=== PATIENT | male | born 1945 | race Caucasian/White ===

== ENCOUNTER 2020-08-04 14:00 | Outpatient (REF) | payer BC, SELFPAY ==
--- NOTE | 2020-08-04 14:02 | XR_ITS ---
EXAMINATION: XR ANKLE, RIGHT CLINICAL INFORMATION: Follow-up fracture COMPARISON: Previous x-rays most recent 06/23/2020 TECHNIQUE: AP, lateral, and mortise views of the right ankle. FINDINGS: There is a fracture of the distal fibular shaft. There is a 4 to 5 mm lateral displacement of the distal fibula with respect to the more proximal shaft. Alignment appears unchanged. Fracture line is still seen and there is minimal periosteal reaction. There is new cortical thickening or periosteal reaction adjacent to the posterior malleolus seen on the lateral view questionable for evidence of trauma. The ankle mortise is normal. There is a small ankle joint effusion. There are large calcaneal spurs. XR/XR ankle RT min 3V IMPRESSION: No appreciable change in minimally displaced distal fibular shaft fracture. New periosteal reaction or cortical thickening of the posterior malleolus questionable for evidence of trauma.
== END 2020-08-04 14:01 | disposition home or self-care (01) ==
LOC: HO.HOSX 14:00
PROVIDERS: Visit Provider Physician Assistant
DX: S82.839D Other fracture of upper and lower end of unspecified fibula, subsequent encounter for closed fracture with routine healing (principal)
CPT/HCPCS: 73610

== ENCOUNTER → 2020-09-17 08:53 | Outpatient (BNV) | payer BC, SELFPAY | PROVIDERS: PCP Nurse Practitioner Family; Visit Provider Internal Medicine Medical Oncology | DX: D47.2 Monoclonal gammopathy (principal) | CPT/HCPCS: 99213; 99214 ==

== ENCOUNTER 2021-02-03 07:00 | Outpatient (RCR) | payer BC, SELFPAY ==
--- NOTE | 2020-12-23 14:56 | MHC.PT.EP ---
[facility] [place] [facility] [place] [facility] [place] [facility] [address] [phone] F: [phone] F: [phone] F: [phone] F: [phone] Physical Therapy Plan of Care Date of Evaluation: 12/23/20 Date of Surgery: n/a Diagnosis: R shoulder pain Assessment: Patient is a 75 year old R handed male who presents with s/s consistent with R shoulder pain. He is retired but enjoys staying busy with work around house and computer work. Patient past medical history is non-contributory. CHICHI may be related to starting up a lawnmower over the summer/fall. Current impairments include pain, ROM, strength, activity tolerance and functional mobility. Functional limitations include decreased ability to reach across body, shave, wash hair, brush teeth, and perform weight bearing activities.. Patient is motivated with good rehab potential. Skilled PT will address impairments and functional limitations in order to achieve goals. Frequency and Duration: The patient will be seen 2x/week for 5 weeks Short Term Goals: I with HEP - 2 weeks AROM WNL ER - 3 weeks Able to brush teeth and shave pain free - 3 weeks Surgical Orderly Goals: Pain free with all ADLs - 5 weeks SPADI 10/130 or better - 5 weeks Treatment Plan: Modalities to reduce pain, spasms and effusion. Manual therapy to restore motion and function. Therapeutic exercise to improve strength and flexibility. Neuromuscular re-education for posture and balance. Therapeutic activities to return to functional activities of daily living. Electronically signed by: Everett Madrigal, PT Please sign and return to therapist. Thank you for your referral.
--- NOTE | 2021-02-03 07:55 | MHC.PT.DC ---
[facility] [place] [facility] [place] Office [place] Office [address] [phone] F: [phone] F: [phone] F: [phone] F: [phone] Physical Therapy Discharge Report Diagnosis: R shoulder pain Date of Surgery: n/a Date of Evaluation: 12/23/20 Date of Discharge: 02/03/21 Treatments to Date: 8 Cancellations to Date: 0 No Shows to Date: 0 Discharge Status: Improved Function Independent with HEP Discharge Summary: Pt has had some progress on ROM and discomfort. Still with some discomfort and tingling in shoulder with supine to sit. We reviewed his HEP and he is appropriate to d/c to HEP at this time. His ER is symmetrical and WNL. He is able to brush teeth and shave pain free. SPADI 18/130. Electronically signed by: Everett Madrigal PT Please sign and return to therapist. Thank you for your referral.
== END 2021-02-03 07:56 | disposition home or self-care (01) ==
LOC: HO.PTCHIC 07:00
PROVIDERS: PCP Nurse Practitioner Family; Visit Provider Nurse Practitioner Family
DX: M25.511 Pain in right shoulder (principal)
CPT/HCPCS: 97110; 97140; 97161

== ENCOUNTER 2021-07-15 07:33 | Outpatient (REF) | payer BC, SELFPAY ==
[2021-07-15 11:26] LABS: MANUAL DIFF FLAG NO
[2021-07-15 11:35] LABS: Basophils Percent Auto 0.5 % (0-2); Eosinophils Absolute Auto 0.2 X10*3/uL (0.0-0.4); Eosinophils Percent Auto 3.2 % (0-4); Hematocrit 38.5 % (42-52); Hemoglobin 12.9 g/dl (14.0-18.0); Imm Gran Abs Auto 0.11 X10*3/uL (0.00-0.03); Imm Gran Pct Auto 1.5 % (0.0-0.4); Lymphocytes Absolute Auto 1.5 X10*3/uL (1.2-4.9); Lymphocytes Percent Auto 20.2 % (20-40); Mean Corpuscular HGB Conc 33.5 g/dl (31.0-36.0); Mean Corpuscular Volume 95.5 fL (80-98); Mean Platelet Volume 10.2 fL (9.4-12.4); Monocytes Absolute Auto 0.5 X10*3/uL (0.1-1.2); Monocytes Percent Auto 7.1 % (2-11); Neutrophils Absolute Auto 5.1 X10*3/uL (2.0-8.3); Neutrophils Percent Auto 67.5 % (45-73); Platelet Count 251 X10*3/uL (160-400); Red Blood Count 4.03 X10*6/uL (4.60-5.80); Red Cell Distribution Width 12.6 % (11.0-16.0); White Blood Count 7.6 X10*3/uL (4.8-10.8)
[2021-07-15 11:57] LABS: Alanine Aminotransferase 43 U/L (0-40); Albumin Level 3.8 g/dL (3.5-5.0); Alkaline Phosphatase 58 U/L (39-117); Anion Gap 10 (12-20); Aspartate Amino Transferase 41 U/L (5-37); Bilirubin Total 0.7 mg/dL (0.0-1.0); Blood Urea Nitrogen 14 mg/dL (9-16); Calcium 9.2 mg/dL (8.4-10.2); Carbon Dioxide 28 mmol/L (22-29); Chloride 101 mmol/L (96-108); Cholesterol 117 mg/dL; Estimated Glomerular Filt Rate > 60; Glucose Fasting 97 mg/dL (60-99); HDL Cholesterol 27 mg/dL; LDL Cholesterol Calculated 69 mg/dl; Potassium 4.4 mmol/L (3.3-5.1); Sodium 135 mmol/L (135-145); Total Protein 7.2 g/dL (6.5-8.0); Triglycerides 106 mg/dL
[2021-07-15 12:20] LABS: TSH reflex Free T4 1.74 uIU/mL (0.32-4.0)
== END 2021-07-15 07:34 | disposition home or self-care (01) ==
LOC: HO.HMGCLDS 07:33
PROVIDERS: PCP Nurse Practitioner Family; Visit Provider Nurse Practitioner Family
DX: I10 Essential (primary) hypertension (principal)
CPT/HCPCS: 36415; 80053; 80061; 84443; 85025

== ENCOUNTER 2022-07-28 07:22 | Outpatient (REF) | payer BC, SELFPAY ==
[2022-07-28 11:20] LABS: MANUAL DIFF FLAG NO
[2022-07-28 11:34] LABS: Appearance Urine Clear; Color Urine Yellow; Glucose Urine UA Negative (Negative); Leukocyte Esterase Urine Negative (Negative); Nitrite Urine Negative (Negative); Urine Blood Negative (Negative); Urine Ketones Negative (Negative); Urine Protein Negative (Neg-Trace)
[2022-07-28 11:45] LABS: Basophils Absolute Auto 0.1 X10*3/uL (0.0-0.2); Basophils Percent Auto 0.8 % (0-2); Eosinophils Absolute Auto 0.2 X10*3/uL (0.0-0.4); Eosinophils Percent Auto 3.4 % (0-4); Hematocrit 39.5 % (42.0-52.0); Hemoglobin 13.3 g/dl (14.0-18.0); Imm Gran Abs Auto 0.02 X10*3/uL (0.00-0.03); Imm Gran Pct Auto 0.3 % (0.0-0.4); Lymphocytes Absolute Auto 1.3 X10*3/uL (1.2-4.9); Lymphocytes Percent Auto 22.5 % (20-40); Mean Corpuscular HGB Conc 33.7 g/dl (31.0-36.0); Mean Corpuscular Hemoglobin 32.4 pg (27.0-33.0); Mean Corpuscular Volume 96.1 fL (80.0-98.0); Mean Platelet Volume 10.3 fL (9.4-12.4); Monocytes Absolute Auto 0.6 X10*3/uL (0.1-1.2); Monocytes Percent Auto 9.8 % (2-11); Neutrophils Absolute Auto 3.7 x10*3/uL (2.0-8.3); Neutrophils Percent Auto 63.2 % (45-73); Platelet Count 193 X10*3/uL (160-400); Red Blood Count 4.11 X10*6/uL (4.60-5.80); Red Cell Distribution Width 12.5 % (11.0-16.0); White Blood Count 5.9 X10*3/uL (4.8-10.8)
[2022-07-28 12:08] LABS: Alanine Aminotransferase 13 U/L (0-40); Albumin Level 4.2 g/dL (3.5-5.0); Alkaline Phosphatase 52 U/L (39-117); Anion Gap 13 (12-20); Aspartate Amino Transferase 15 U/L (5-37); Bilirubin Total 0.9 mg/dL (0.0-1.0); Blood Urea Nitrogen 20 mg/dL (9-16); Calcium 8.9 mg/dL (8.4-10.2); Carbon Dioxide 26 mmol/L (22-29); Chloride 102 mmol/L (96-108); Cholesterol 124 mg/dL; Estimated Glomerular Filt Rate > 60; Glucose Fasting 90 mg/dL (60-99); HDL Cholesterol 37 mg/dL; LDL Cholesterol Calculated 72 mg/dl; Potassium 4.4 mmol/L (3.3-5.1); Sodium 137 mmol/L (135-145); Total Protein 7.4 g/dL (6.5-8.0); Triglycerides 75 mg/dL
[2022-07-28 12:15] LABS: TSH reflex Free T4 1.41 uIU/mL (0.32-4.0)
== END 2022-07-28 07:23 | disposition home or self-care (01) ==
LOC: HO.HMGCLDS 07:22
PROVIDERS: PCP Nurse Practitioner Family; Visit Provider Nurse Practitioner Family
DX: Z00.00 Encounter for general adult medical examination without abnormal findings (principal)
CPT/HCPCS: 36415; 80053; 80061; 81003; 84443; 85025

== ENCOUNTER 2023-02-19 06:50 | Outpatient (REF) | payer BC, SELFPAY ==
[2023-02-19 11:20] LABS: MANUAL DIFF FLAG NO
[2023-02-19 11:26] LABS: Appearance Urine Clear; Color Urine Yellow; Glucose Urine UA Negative (Negative); Leukocyte Esterase Urine Negative (Negative); Nitrite Urine Negative (Negative); Specific Gravity - Urine 1.015 (1.005-1.025); Urine Blood Negative (Negative); Urine Ketones Negative (Negative); Urine Protein Negative (Neg-Trace)
[2023-02-19 11:39] LABS: Basophils Percent Auto 0.7 % (0-2); Eosinophils Absolute Auto 0.2 X10*3/uL (0.0-0.4); Eosinophils Percent Auto 2.8 % (0-4); Hemoglobin 13.1 g/dl (14.0-18.0); Imm Gran Abs Auto 0.01 X10*3/uL (0.00-0.03); Imm Gran Pct Auto 0.2 % (0.0-0.4); Lymphocytes Absolute Auto 1.2 X10*3/uL (1.2-4.9); Mean Corpuscular HGB Conc 34.5 g/dl (31.0-36.0); Mean Corpuscular Hemoglobin 33.1 pg (27.0-33.0); Mean Platelet Volume 10.4 fL (9.4-12.4); Monocytes Absolute Auto 0.4 X10*3/uL (0.1-1.2); Monocytes Percent Auto 7.8 % (2-11); Neutrophils Absolute Auto 3.6 x10*3/uL (2.0-8.3); Neutrophils Percent Auto 66.5 % (45-73); Platelet Count 176 X10*3/uL (160-400); Red Blood Count 3.96 X10*6/uL (4.60-5.80); Red Cell Distribution Width 12.3 % (11.0-16.0); White Blood Count 5.4 X10*3/uL (4.8-10.8)
[2023-02-19 12:04] LABS: Alanine Aminotransferase 18 U/L (0-40); Albumin Level 4.1 g/dL (3.5-5.0); Alkaline Phosphatase 57 U/L (39-117); Anion Gap 10 (12-20); Aspartate Amino Transferase 15 U/L (5-37); Bilirubin Total 0.9 mg/dL (0.0-1.0); Blood Urea Nitrogen 19 mg/dL (9-16); Calcium 9.1 mg/dL (8.4-10.2); Carbon Dioxide 28 mmol/L (22-29); Chloride 105 mmol/L (96-108); Cholesterol 122 mg/dL; Estimated Glomerular Filt Rate > 60; Glucose Fasting 93 mg/dL (60-99); HDL Cholesterol 39 mg/dL; LDL Cholesterol Calculated 67 mg/dl; Potassium 4.3 mmol/L (3.3-5.1); Sodium 139 mmol/L (135-145); Total Protein 7.3 g/dL (6.5-8.0); Triglycerides 80 mg/dL
[2023-02-19 12:20] LABS: TSH reflex Free T4 1.54 uIU/mL (0.32-4.0)
[2023-02-20 22:58] LABS: A. Phagocytphilium DNA,RT-PCR NOT DETECTED (NOT DETECTED); Babesia Microti DNA, RT-PCR NOT DETECTED (NOT DETECTED); Borrelia Miyamotoi,DNA RT-PCR NOT DETECTED (NOT DETECTED); E.Chaffeensis DNA RT-PCR NOT DETECTED (NOT DETECTED); Lyme(Borrelia ssp)DNA RT-PCR NOT DETECTED (NOT DETECTED)
== END 2023-02-19 06:51 | disposition home or self-care (01) ==
LOC: HO.HMGCLDS 06:50
PROVIDERS: PCP Nurse Practitioner Family; Visit Provider Nurse Practitioner Family
DX: I10 Essential (primary) hypertension (principal); T14.8XXA Other injury of unspecified body region, initial encounter; W57.XXXA Bitten or stung by nonvenomous insect and other nonvenomous arthropods, initial encounter
CPT/HCPCS: 36415; 80053; 80061; 81003; 84443; 85025; 87798; 87801

== ENCOUNTER 2023-07-26 10:29 | Outpatient (AMB) | payer BC, SELFPAY ==
--- NOTE | 2023-07-26 10:32 | MHC.PC.OV ---
Vital Signs 07/26/23 10:35 Height 5 ft 8 in Weight 174 lb BMI 26.5 BP 110/68 Blood Pressure Location Rt brachial Position Sitting Pulse 73 Pulse Source Pulse Oximeter Pulse Oximetry (%) 98 Oxygen Delivery Method Room Air Intake Visit Reasons: PE Allergies penicillin G Allergy (Unknown, Verified 07/26/23 10:35) hives penicillin V Allergy (Unknown, Verified 07/26/23 10:35) rash Penicillins [PENICILLINS] Allergy (Unknown, Verified 07/26/23 10:35) RASH Tobacco use date assessed: 01/22/23 HPI PE HPI Details Pt is here for a PE. Will order labs. Pt no longer needs colonoscopies. Pt has a hx of BPH, sees a urologist, PSA will nto be ordered today. referral needed yearly. [facility] Medical History Anemia BPH (benign prostatic hyperplasia) Crepitus of cervical spine Elevated PSA HTN (hypertension) Hypothyroid Jaw claudication MGUS (monoclonal gammopathy of unknown significance) Monoclonal gammopathy Nocturia Nontoxic uninodular goiter Osteopenia Tinea corporis Tubular adenoma Surgical History History of colonoscopy History of prostate biopsy Family History Father History of heart attack Mother No problems noted. Maternal Grandmother Diabetes mellitus Maternal Grandfather Diabetes mellitus Brother No problems noted. Sister No problems noted. Paternal Grandfather No problems noted. Paternal Grandmother No problems noted. Maternal Aunt No problems noted. Maternal Uncle No problems noted. Paternal Aunt No problems noted. Paternal Uncle No problems noted. Other No family history of cancer Social History Household Members: Family Housing: House Are you a primary manager progressive care to a significant other at home: No Do you presently have visiting nurse or other home services: No Alcohol intake: former Patient Tobacco Use Status: Never used Tobacco e-Cigarette/Vaping Use: Never Used Second Hand Smoke Exposure: No service: No Current occupational status: retired Cognitive needs: No Hearing needs: No Vision needs: No Questionnaire Thrive Questionnaire Date Thrive assessed: 07/24/22 ABRAHAM-7 AMB Questionnaire ABRAHAM-7 Date ABRAHAM - 7 assessed: 07/24/22 Source: Developed by Drs. Carlos Alberto Velez, Johanna Cifuentes, Yury Bermudez and colleagues, with an educational nilay from [employer]. Review of Systems Const Denies chills and Denies fever(s) Eyes Denies blurry vision ENT Denies vertigo, Denies dizziness and Denies sore throat Card Denies chest pain at rest, Denies chest pain with activity, Denies diaphoresis, Denies dyspnea and Denies dyspnea on exertion Resp Denies cough, Denies dyspnea, Denies dyspnea on exertion and Denies wheezing GI Denies abdominal pain, Denies melena, Denies hematochezia, Denies constipation, Denies diarrhea and Denies loose stools Denies hematuria Musc Denies numbness and Denies tingling Skin/Breast Denies lesions Neuro Denies vertigo, Denies dizziness, Denies numbness and Denies tingling Psych Denies anxiety, Denies depression, Denies homicidal ideation, Denies suicidal ideation and Denies other (substance abuse) Aller/Immun Denies wheezing Physical exam (Primary Care) Vital Signs: Last Vital Signs Pulse 73 07/26/23 10:35 BP 110/68 07/26/23 10:35 Pulse Ox 98 07/26/23 10:35 Oxygen Delivery Method Room Air 07/26/23 10:35 BMI result Body Mass Index 26.5 Tobacco/Smoking Status: Tobacco use Status Tobacco use date assessed 01/22/23 07/26/23 10:34 Patient Tobacco Use Status Never used Tobacco 07/26/23 10:34 e-Cigarette/Vaping Use Never Used 07/26/23 10:34 Thrive Assessment: Date of Thrive Assessment Date Thrive assessed 07/24/22 07/26/23 10:34 Const General: cooperative Nutritional Appearance: well nourished Orientation/consciousness: patient oriented x3 HENMT Head: Yes normal to inspection, Yes normocephalic and Yes atraumatic Ears: TM's normal bilaterally Eyes General: appearance normal, both eyes and all related structures Alignment and Position: alignment normal and position normal Neck Neck: Yes normal visual inspection and Yes no lymphadenopathy Thyroid: Thyroid normal Resp Effort & Inspection: normal respiratory effort Auscultation: clear to auscultation bilaterally Cardio Rate: regular rate Rhythm: regular rhythm Heart sounds: S1 normal heart sound present, S2 normal heart sound present and no murmurs GI Palpation (GI): Soft to palpation and nontender Auscultation: normal bowel sounds Male General Exam: Yes normal external exam Penis: normal penis Scrotum: scrotum normal, testes descended bilaterally and no inguinal hernias Testes: no testicular mass Skin Rashes: no rashes Neuro General: patient oriented x3, moves all extremities, no focal motor deficits and deep tendon reflexes 2+ bilaterally Romberg Test: Negative Psych Appearance: grossly normal Mental Status: mental status grossly normal Speech and movement: Normal speech and movement present Affect: normal affect Attitude: cooperative Thought process: Normal thought process present Thought content: Normal thought content present Insight: Good insight present (Psych) Judgement: Good judgement present (Psych) Assessment and Plan Assessment & Plan (1) BPH (benign prostatic hyperplasia): Code(s): N40.0 - Benign prostatic hyperplasia without lower urinary tract symptoms Plan: Referred to urology (2) Physical exam: Code(s): Z00. - Encounter for general adult medical examination without abnormal findings Plan: Labs ordered Plan The patient agreed to the use of a medical technologist chief for this encounter. Scribed for VALERIANO Bruce by Jennifer Wong medical technologist chief, on 07/26/2023 at 10:55 EST Orders: Orders Comprehensive Stewart. Panel Fast Today Z00.00 - Encounter for general adult medical examination without abnormal findings TSH reflex Free T4 Today Z00.00 - Encounter for general adult medical examination without abnormal findings UA CC w/rflx Micro + Cult Today Z00.00 - Encounter for general adult medical examination without abnormal findings Lipid Panel Today Z00.00 - Encounter for general adult medical examination without abnormal findings Complete Blood Count Auto Diff Today Z00.00 - Encounter for general adult medical examination without abnormal findings AMB EKG-In Office Today Z00.00 - Encounter for general adult medical examination without abnormal findings Referrals Urology Referral N40.0 - Benign prostatic hyperplasia without lower urinary tract symptoms Coding Level of Care Code Est Pt Prev Care >65y(18656) Diagnoses BPH (benign prostatic hyperplasia) N40.0 Physical exam Z00.00
[2023-07-26 10:35] VITALS: BP 110/68; PULSE 73; O2SAT 98; BMI 26.5
== END 2023-07-26 11:18 | disposition home or self-care (01) ==
PROVIDERS: Visit Provider Nurse Practitioner Family
DX: N40.0 Benign prostatic hyperplasia without lower urinary tract symptoms (principal); Z00.00 Encounter for general adult medical examination without abnormal findings
CPT/HCPCS: 99397

== ENCOUNTER 2023-08-24 07:12 | Outpatient (REF) | payer BC, SELFPAY ==
[2023-08-24 11:28] LABS: MANUAL DIFF FLAG NO
[2023-08-24 11:34] LABS: Appearance Urine Clear; Color Urine Yellow; Glucose Urine UA Negative (Negative); Leukocyte Esterase Urine Negative (Negative); Nitrite Urine Negative (Negative); Urine Blood Negative (Negative); Urine Ketones Negative (Negative); Urine Protein Negative (Neg-Trace)
[2023-08-24 11:37] LABS: Basophils Absolute Auto 0.1 X10*3/uL (0.0-0.2); Basophils Percent Auto 0.8 % (0-2); Eosinophils Absolute Auto 0.2 X10*3/uL (0.0-0.4); Eosinophils Percent Auto 2.4 % (0-4); Hemoglobin 12.8 g/dl (14.0-18.0); Imm Gran Abs Auto 0.02 X10*3/uL (0.00-0.03); Imm Gran Pct Auto 0.3 % (0.0-0.4); Lymphocytes Absolute Auto 1.5 X10*3/uL (1.2-4.9); Lymphocytes Percent Auto 24.4 % (20-40); Mean Corpuscular HGB Conc 33.7 g/dl (31.0-36.0); Mean Corpuscular Hemoglobin 32.7 pg (27.0-33.0); Mean Corpuscular Volume 96.9 fL (80.0-98.0); Mean Platelet Volume 10.7 fL (9.4-12.4); Monocytes Absolute Auto 0.6 X10*3/uL (0.1-1.2); Monocytes Percent Auto 8.8 % (2-11); Neutrophils Absolute Auto 3.9 x10*3/uL (2.0-8.3); Neutrophils Percent Auto 63.3 % (45-73); Platelet Count 192 X10*3/uL (160-400); Red Blood Count 3.92 X10*6/uL (4.60-5.80); Red Cell Distribution Width 12.6 % (11.0-16.0); White Blood Count 6.2 X10*3/uL (4.8-10.8)
[2023-08-24 12:15] LABS: Alanine Aminotransferase 18 U/L (0-40); Albumin Level 4.1 g/dL (3.5-5.0); Alkaline Phosphatase 56 U/L (39-117); Anion Gap 10 (12-20); Aspartate Amino Transferase 17 U/L (5-37); Bilirubin Total 0.8 mg/dL (0.0-1.0); Blood Urea Nitrogen 17 mg/dL (9-16); Calcium 9.5 mg/dL (8.4-10.2); Carbon Dioxide 29 mmol/L (22-29); Chloride 104 mmol/L (96-108); Cholesterol 117 mg/dL (<200); Estimated Glomerular Filt Rate > 60; Glucose Fasting 91 mg/dL (60-99); HDL Cholesterol 37 mg/dL (>40); LDL Cholesterol Calculated 66 mg/dL (<100); Potassium 4.1 mmol/L (3.3-5.1); Sodium 139 mmol/L (135-145); TSH reflex Free T4 1.47 uIU/mL (0.32-4.0); Total Protein 7.7 g/dL (6.5-8.0); Triglycerides 74 mg/dL (<150)
== END 2023-08-24 07:13 | disposition home or self-care (01) ==
LOC: HO.HMGCLDS 07:12
PROVIDERS: PCP Nurse Practitioner Family; Visit Provider Nurse Practitioner Family
DX: Z00.00 Encounter for general adult medical examination without abnormal findings (principal); E03.9 Hypothyroidism, unspecified; I10 Essential (primary) hypertension
CPT/HCPCS: 36415; 80053; 80061; 81003; 84443; 85025

== ENCOUNTER 2023-11-13 12:45 | Outpatient (AMB) | payer BC, SELFPAY ==
[2023-11-13 12:55] VITALS: BP 110/72; PULSE 103; TEMP 36.3; O2SAT 99; BMI 25.2
--- NOTE | 2023-11-13 12:55 | AM.OFFWIN_ITS ---
Intake Vital Signs 11/13/23 12:55 Height 5 ft 8 in Weight 166 lb BMI 25.2 BP 110/72 Blood Pressure Location Lt brachial Position Sitting Pulse 103 H Pulse Source Pulse Oximeter Temp 97.4 F Temp Source Temporal Artery Scan Pulse Oximetry (%) 99 Oxygen Delivery Method Room Air Intake Visit Reasons: EST/abd pain (lobby) Intake Note: pt is here today for abd pain started 1 week ago Patient Tobacco Use Status: Never used Tobacco Allergies penicillin G Allergy (Unknown, Verified 11/13/23 13:40) hives penicillin V Allergy (Unknown, Verified 11/13/23 13:40) rash Penicillins [PENICILLINS] Allergy (Unknown, Verified 11/13/23 13:40) RASH Medication List - Last Reconciled 11/13/23 by Jarrod Urrutia MD calcium citrate 200 mg PO DAILY losartan 100 mg PO DAILY multivitamin 1 tab PO DAILY Do you need a note to return to daycare/school/sports/work: No HPI EST/abd pain (lobby) HPI Details 78 yr old male presents to the office fo r a sick visit. Patient is experiencing sx of diarrhea for the past five days. No family member has similiar illness. Initally had vomiting and nausea which has since subsided. No fever or chills. [facility] Medical History Anemia BPH (benign prostatic hyperplasia) Crepitus of cervical spine Elevated PSA HTN (hypertension) Hypothyroid Jaw claudication MGUS (monoclonal gammopathy of unknown significance) Monoclonal gammopathy Nocturia Nontoxic uninodular goiter Osteopenia Tinea corporis Tubular adenoma Surgical History History of colonoscopy History of prostate biopsy Family History Father History of heart attack Mother No problems noted. Maternal Grandmother Diabetes mellitus Maternal Grandfather Diabetes mellitus Brother No problems noted. Sister No problems noted. Paternal Grandfather No problems noted. Paternal Grandmother No problems noted. Maternal Aunt No problems noted. Maternal Uncle No problems noted. Paternal Aunt No problems noted. Paternal Uncle No problems noted. Other No family history of cancer Social History Household Members: Family Housing: House Are you a primary neonatal critical care nurse to a significant other at home: No Do you presently have visiting nurse or other home services: No Alcohol intake: former Patient Tobacco Use Status: Never used Tobacco e-Cigarette/Vaping Use: Never Used Second Hand Smoke Exposure: No service: No Current occupational status: retired Cognitive needs: No Hearing needs: No Vision needs: No Physical Exam Vital Signs: Last Vital Signs Temp 97.4 F 11/13/23 12:55 Pulse 103 H 11/13/23 12:55 BP 110/72 11/13/23 12:55 Pulse Ox 99 11/13/23 12:55 Oxygen Delivery Method Room Air 11/13/23 12:55 BMI result Body Mass Index 25.2 Const General: cooperative and healthy appearing Nutritional Appearance: well nourished Orientation/consciousness: patient oriented x3 Limitations: no limitations HEENT Head: Yes normal to inspection Eyes General: appearance normal, both eyes and all related structures Neck Neck: Yes normal visual inspection Chest Chest palpation & inspection: normal palpation of entire chest wall Resp Effort & Inspection: normal respiratory effort Neuro General: patient oriented x3 Assessment & Plan Assessment & Plan (1) Diarrhea: Code(s): R19.7 - Diarrhea, unspecified Plan: Cipro called in. Will call with results of blood work. Orders: Orders Liver Panel Today R19.7 - Diarrhea, unspecified Thyroid Stimulating Hormone Today R19.7 - Diarrhea, unspecified Basic Metabolic Panel Today R19.7 - Diarrhea, unspecified Complete Blood Count no Diff Today R19.7 - Diarrhea, unspecified Lipid Panel Today R19.7 - Diarrhea, unspecified UA and rflx microscopic Today R19.7 - Diarrhea, unspecified Coding Level of Care Code Est Pt Level 4 (09857) Diagnoses Diarrhea R19.7
== END 2023-11-13 14:35 | disposition home or self-care (01) ==
PROVIDERS: PCP Nurse Practitioner Family; Visit Provider Internal Medicine
DX: R19.7 Diarrhea, unspecified (principal)
CPT/HCPCS: 99214

== ENCOUNTER 2023-11-13 13:38 | Outpatient (REF) | payer BC, SELFPAY ==
[2023-11-13 16:29] LABS: Hematocrit 40.9 % (42.0-52.0); Hemoglobin 13.8 g/dl (14.0-18.0); Mean Corpuscular HGB Conc 33.7 g/dl (31.0-36.0); Mean Corpuscular Hemoglobin 32.9 pg (27.0-33.0); Mean Corpuscular Volume 97.4 fL (80.0-98.0); Mean Platelet Volume 11.3 fL (9.4-12.4); Platelet Count 246 X10*3/uL (160-400); Red Cell Distribution Width 12.8 % (11.0-16.0); White Blood Count 11.2 X10*3/uL (4.8-10.8)
[2023-11-13 16:49] LABS: Alanine Aminotransferase 44 U/L (0-40); Albumin Level 3.5 g/dL (3.5-5.0); Alkaline Phosphatase 51 U/L (39-117); Anion Gap 14 (12-20); Aspartate Amino Transferase 24 U/L (5-37); Bilirubin Direct 0.3 mg/dL (0.0-0.5); Bilirubin Total 0.7 mg/dL (0.0-1.0); Blood Urea Nitrogen 41 mg/dL (9-16); Calcium 9.2 mg/dL (8.4-10.2); Carbon Dioxide 26 mmol/L (22-29); Chloride 105 mmol/L (96-108); Cholesterol 102 mg/dL (<200); Estimated Glomerular Filt Rate 60; Glucose Random 106 mg/dL (60-115); HDL Cholesterol 23 mg/dL (>40); LDL Cholesterol Calculated 58 mg/dL (<100); Potassium 3.5 mmol/L (3.3-5.1); Sodium 141 mmol/L (135-145); Total Protein 7.4 g/dL (6.5-8.0); Triglycerides 109 mg/dL (<150)
[2023-11-13 17:06] LABS: Thyroid Stimulating Hormone 2.42 uIU/mL (0.32-4.0)
== END 2023-11-13 13:39 | disposition home or self-care (01) ==
LOC: HO.HMGCLDS 13:38
PROVIDERS: PCP Nurse Practitioner Family; Visit Provider Internal Medicine
DX: R19.7 Diarrhea, unspecified (principal)
CPT/HCPCS: 36415; 80048; 80061; 80076; 84443; 85027

== ENCOUNTER 2024-08-15 10:32 | Outpatient (AMB) | payer BC, SELFPAY ==
--- NOTE | 2024-08-15 10:41 | A.OFFPC_ITS ---
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 Required: No Allergies penicillin G Allergy (Unknown, Verified 08/15/24 10:44) hives penicillin V Allergy (Unknown, Verified 08/15/24 10:44) rash Penicillins [PENICILLINS] Allergy (Unknown, Verified 08/15/24 10:44) RASH Medication List - Last Reconciled 08/15/24 by Padmini Aguiar NP calcium citrate 200 mg PO DAILY losartan 100 mg PO DAILY multivitamin 1 tab PO DAILY Tobacco use date assessed: 08/15/24 Fall risk assessment: No Falls in past year Last assessed Fall Risk: 08/15/24 Dental Screening Dental Screen Date: 08/15/24 Did you have a dental visit in the last 12 months?: Yes Did you have a dental problem in the last 6 months where you did not have access to dental care?: No Was dental information given to patient?: Patient has dentist HPI HPI Comments History of Present Illness Details 78 y/o male patient who presents for PE. Patient of Rex Thompson. Pmhx significant for BPH, HTN and Hypothyroidism. No concerns today. [facility] Medical History (Updated 08/15/24 @ 11:13 by Padmini Aguiar NP) Encounter for routine adult health examination without abnormal findings Crepitus of cervical spine MGUS (monoclonal gammopathy of unknown significance) Nontoxic uninodular goiter Tinea corporis Anemia Jaw claudication Monoclonal gammopathy Tubular adenoma Elevated PSA Osteopenia Nocturia HTN (hypertension) BPH (benign prostatic hyperplasia) Hypothyroid Surgical History History of prostate biopsy History of colonoscopy Family History Father History of heart attack Mother No problems noted. Maternal Grandmother Diabetes mellitus Maternal Grandfather Diabetes mellitus Brother No problems noted. Sister No problems noted. Paternal Grandfather No problems noted. Paternal Grandmother No problems noted. Maternal Aunt No problems noted. Maternal Uncle No problems noted. Paternal Aunt No problems noted. Paternal Uncle No problems noted. Other No family history of cancer Social History (Reviewed 08/15/24 @ 10:45 by Rocky Mathews [facility]) Household Members: Family Housing: House Are you a primary careers counsellor to a significant other at home: No Do you presently have visiting nurse or other home services: No Alcohol intake: former Patient Tobacco Use Status: Never used Tobacco e-Cigarette/Vaping Use: Never Used Second Hand Smoke Exposure: No service: No Current occupational status: retired Cognitive needs: No Hearing needs: No Vision needs: No Questionnaire PHQ-9 Over the last 2 weeks, how often have you been bothered by any of the following problems? 1. Little interest or pleasure in doing things: not at all 2. Feeling down, depressed, or hopeless: not at all 3. Trouble falling or staying asleep, or sleeping too much: not at all 4. Feeling tired or having little energy: not at all 5. Poor appetite or overeating: not at all 6. Feeling bad about yourself - or that you are a failure or have let yourself or your family down: not at all 7. Trouble concentrating on things, such as reading the newspaper or watching television: not at all 8. Moving or speaking so slowly that other people could have noticed. Or the opposite - being so fidgety or restless that you have been moving around a lot more than usual: not at all 9. Thoughts that you would be better off or of hurting yourself in some way: not at all Total score: 0 Depression Screening Interpretation: Negative Depression Screening Done: Yes 56901 - PHQ-9 Billing: Yes Source: Developed by Drs. Carlos Alberto Velez, Johanna Cifuentes, Yury Bermudez and colleagues, with an educational nilay from [employer].. Thrive Questionnaire Date Thrive assessed: 08/15/24 I am a: Patient What is your living situation today?: I have a steady place to live Within the past 12 months, did the food you bought not last and you didn't have the money to get more?: Never true Within the past 12 months, did you worry whether your food would run out before you got money to buy more?: Never true Do you have trouble paying for medicines?: No Do you have trouble getting transportation to medical appointments?: No Do you have trouble paying your heating and electricity bill?: No Do you have trouble taking care of your child, family member or friend?: No Do you have trouble with day-to-day activities such as bathing, preparing meals, shopping, managing finances, etc.?: No Are you currently unemployed and looking for a job?: No Are you interested in more education?: No Please select the resources that you would like help with: None Currently or been in a relationship where the following occur: No concerns reported THRIVE Score: 0 AUDIT C Alcohol Use Questionnaire (AUDIT-C) 1. How often do you have a drink containing alcohol?: Never 3. How often do you have six or more drinks on one occasion?: Never Total Score: 0 Score Reviewed/Action Taken: Yes ABRAHAM-7 AMB Questionnaire ABRAHAM-7 Date ABRAHAM - 7 assessed: 08/15/24 Feeling nervous, anxious, or on edge: 0 = Not at all Not being able to stop or control worryin = Not at all Worrying too much about different things: 0 = Not at all Trouble relaxin = Not at all Being so restless that it is hard to sit still: 0 = Not at all Becoming easily annoyed or irritable: 0 = Not at all Feeling afraid as if something awful might happen: 0 = Not at all Total ABRAHAM-7 score (0-4 normal; 5-9 mild; 10-14 moderate; 15-21 severe): 0 Source: Developed by Drs. Carlos Alberto Velez, Johanna Cifuentes, Yury Bermudez and colleagues, with an educational nilay from [employer].. ABRAHAM-7 Assessment Billing ABRAHAM-7 Assessment Tool: ABRAHAM-7 Assessment 05099 Review of Systems Const All systems reviewed & are unremarkable except as noted in HPI and below Physical exam (Primary Care) Vital Signs: Last Vital Signs Pulse 80 08/15/24 10:42 BP 116/68 08/15/24 10:42 Pulse Ox 98 08/15/24 10:42 BMI result Body Mass Index 26.1 Tobacco/Smoking Status: Tobacco use Status Tobacco use date assessed 08/15/24 08/15/24 10:46 Patient Tobacco Use Status Never used Tobacco 08/15/24 10:43 e-Cigarette/Vaping Use Never Used 08/15/24 10:43 PHQ-9: PHQ-9 Score PHQ-9: Total score 0 08/15/24 10:46 Depression Screening Interpretation: Negative Thrive Assessment: Date of Thrive Assessment Date Thrive assessed 08/15/24 08/15/24 10:46 Currently or been in a relationship where the following occur: No concerns reported Const General: cooperative, comfortable and no acute distress Nutritional Appearance: well nourished Orientation/consciousness: patient oriented x3 HENMT Head: Yes normocephalic Ears: external ears normal and TM's normal bilaterally General nose exam: Normal external nose present Face and sinus: Yes sinuses nontender Mouth: moist mucous membranes Throat: Yes tonsils normal and Yes uvula midline Eyes Pupils: Equal, round and reactive pupils present EOM: EOMs intact bilaterally Neck Neck: Yes full ROM and Yes no lymphadenopathy Thyroid: Thyroid normal Resp Effort & Inspection: normal respiratory effort and able to speak in complete sentences Auscultation: clear to auscultation bilaterally, no crackles, no rales, no rhonchi and no wheezes Cardio Heart sounds: S1 normal heart sound present and S2 normal heart sound present GI Inspection: Yes normal to inspection Palpation (GI): Soft to palpation, not firm, nontender, no guarding, not rigid and No hepatosplenomegaly present Percussion: Yes normal to percussion Auscultation: normal bowel sounds Rectal Exam - Male: Yes deferred General: Yes no CVA tenderness Back/Spine/Pelvis Back: no CVA tenderness Skin General skin exam: no rashes or lesions noted Neuro General: patient oriented x3, gait normal and moves all extremities Cranial nerves: Yes Equal, round and reactive pupils present Motor exam (neuro): 5/5 motor strength present throughout Extrem General: Yes full ROM and Yes capillary refill normal Psych Speech and movement: Normal speech and movement present Coding Level of Care Code Est Pt Prev Care >65y(03013) Diagnoses Encounter for routine adult health examination without abnormal findings Z00.00 Benign prostatic hyperplasia with urinary hesitancy N40.1; R39.11 Lower urinary tract symptom presence: symptoms present Lower urinary tract symptom detail: urinary hesitancy Primary hypertension I10 Hypertension type: primary hypertension Additional Codes ABRAHAM-7 Assessment Billing - ABRAHAM-7 Assessment Tool: ABRAHAM-7 Assessment 57092 ([id number]) PHQ-9 - 56662 - PHQ-9 Billing: Yes ([id number]) Time Spent (min) 30 Assessment & Plan Assessment & Plan (1) Encounter for routine adult health examination without abnormal findings: Code(s): Z00.00 - Encounter for general adult medical examination without abnormal findings Category: Medical Plan: Exam WNL (2) BPH (benign prostatic hyperplasia): Code(s): N40.0 - Benign prostatic hyperplasia without lower urinary tract symptoms Category: Medical Qualifiers: Lower urinary tract symptom presence: symptoms present Lower urinary tract symptom detail: urinary hesitancy Qualified Code(s): N40.1 - Benign prostatic hyperplasia with lower urinary tract symptoms; R39.11 - Hesitancy of micturition Plan: Managed by Urology (3) HTN (hypertension): Code(s): I10 - Essential (primary) hypertension Category: Medical Qualifiers: Hypertension type: primary hypertension Qualified Code(s): I10 - Essential (primary) hypertension Plan: Continue on Losartan as prescribed. Medications: Refilled losartan 100 mg PO DAILY 90 tabs 1RF Discontinued ciprofloxacin HCl Discontinued Reason: Patient Completed Course 250 mg PO Q12H 14 tabs 0RF
[2024-08-15 10:42] VITALS: BP 116/68; PULSE 80; O2SAT 98; BMI 26.1
== END 2024-08-15 11:16 | disposition home or self-care (01) ==
PROVIDERS: PCP Nurse Practitioner Family; Visit Provider Nurse Practitioner Family
DX: Z00.00 Encounter for general adult medical examination without abnormal findings (principal); N40.1 Benign prostatic hyperplasia with lower urinary tract symptoms; R39.11 Hesitancy of micturition; I10 Essential (primary) hypertension

== ENCOUNTER → 2024-08-15 10:32 | Outpatient (BNVA) | payer BC, SELFPAY | PROVIDERS: PCP Nurse Practitioner Family; Visit Provider Nurse Practitioner Family | DX: Z00.00 Encounter for general adult medical examination without abnormal findings (principal); N40.1 Benign prostatic hyperplasia with lower urinary tract symptoms; R39.11 Hesitancy of micturition; I10 Essential (primary) hypertension; Z79.899 Other long term (current) drug therapy | CPT/HCPCS: 96127 ==

== ENCOUNTER 2025-02-09 10:02 | Outpatient (AMB) | payer BC, SELFPAY ==
[2025-02-09 10:13] VITALS: BP 110/70; PULSE 92; O2SAT 98; BMI 26.0
--- NOTE | 2025-02-09 10:13 | A.OFFPC_ITS ---
Vital Signs 02/09/25 10:13 Height 5 ft 8 in Weight 171 lb BMI 26.0 BP 110/70 Blood Pressure Location Lt brachial Position Sitting Pulse 92 Pulse Source Pulse Oximeter Pulse Oximetry (%) 98 Intake Visit Reasons: 6 month f/u Vp Of Digital Marketing Required: No Accompanied by: Self / Same As Patient Allergies penicillin G Allergy (Unknown, Verified 02/09/25 10:13) hives penicillin V Allergy (Unknown, Verified 02/09/25 10:13) rash Penicillins [PENICILLINS] Allergy (Unknown, Verified 02/09/25 10:13) RASH Medication List - Last Reconciled 02/09/25 by CAMILLE SchwartzP- calcium citrate 200 mg PO DAILY losartan 100 mg PO DAILY multivitamin 1 tab PO DAILY Tobacco use date assessed: 02/09/25 Fall risk assessment: No Falls in past year Last assessed Fall Risk: 02/09/25 Dental Screening Dental Screen Date: 02/09/25 Did you have a dental visit in the last 12 months?: Yes Did you have a dental problem in the last 6 months where you did not have access to dental care?: No Was dental information given to patient?: Patient has dentist HPI 6 month f/u HPI Details Chief Complaint The patient reports the presence of a large mass in the left calf region. History of Present Illness The patient is an 79-year-old male being seen regarding a mass in the left calf. The mass was noted two weeks prior and is located on the lateral aspect of the left calf. It is described as sizable, semi-movable, resembling a lipoma, and lacking tenderness. The patient reports no calf pain, warmth, or tenderness associated with the mass. Circulation, motor, and sensory function in the left calf is reported as normal. Hypertension management is stable, and the patient denies any symptoms including chest pain, shortness of breath, headache, or blurred vision. Social History Health Maintenance Review of Systems - Musculoskeletal: Denies calf pain, war mth, tenderness. - Cardiovascular: Denies chest pain. - Respiratory: Denies shortness of breat h. - Neurological: Denies headache, blurred vision. Physical Exam General: Cooperative, healthy appearing, comfortable, no acute distress and well developed Orientation: Patient oriented x3 Limitations: No limitations Head: Normal to inspection Ears: Hearing grossly normal bilaterally Nose: Normal external nose present Face and sinus: Normal facial exam Eyes: Appearance normal, both eyes and all related structures Neck: Normal visual inspection and Yes full ROM Respiratory: Normal respiratory effort and able to speak in complete sentences. Clear to auscultation bilaterally Cardiovascular: Regular rate and rhythm. Normal S1 and S2 GI: Normal to inspection. Soft to palpation and nontender Skin: No rashes or lesions noted Neuro: Patient oriented x3 Extremities: Normal to inspection, except for a large semi-movable mass on the left calf, lateral aspect, suspected lipoma, non-tender, good CMS to the left. Results Plan An ultrasound of the left calf mass will be ordered to further evaluate its nature, with consideration for the likely diagnosis of a lipoma. A referral to general surgery will be made for potential excision of the lipomatous mass based on imaging findings. The patient's stable essential hypertension will continue to be monitored, and no alterations in management are anticipated at this time. I will await lab results relevant to his oncological and hematological conditions for continued assessment. Discussion Notes I discussed with the patient the likely diagnosis of a lipoma concerning the mass in his left calf, highlighting necessitated imaging via ultrasound to confirm its characteristics. I explained the potential need for surgical excision should the diagnosis be confirmed, detailing the anticipated benefits and the usual low-risk nature of lipoma removal. Considerations surrounding his hypertension management were reviewed. As the patient remains stable with respect to blood pressure, no immediate medication adjustments are warranted. We discussed anticipated lab evaluations by his oncologist and textile colorist formulator concerning his broader health context, which will further inform care strategies moving forward. Patient Instructions - Watch for changes in the size or sensa tion of the calf mass. - Keep all scheduled appointments, inclu ding ultrasound and surgical consultations. - Continue to monitor blood pressure as advised. - Report any new symptoms such as pain, redness, or changes in the mass promptly. 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 Maternal Grandmother Diabetes mellitus Maternal Grandfather Diabetes mellitus Brother No problems noted. Sister No problems noted. Paternal Grandfather No problems noted. Paternal Grandmother No problems noted. Maternal Aunt No problems noted. Maternal Uncle No problems noted. Paternal Aunt No problems noted. Paternal Uncle No problems noted. Other No family history of cancer Social History Household Members: Family Housing: House Are you a primary childcare director to a significant other at home: No Do you presently have visiting nurse or other home services: No Alcohol intake: former Patient Tobacco Use Status: Never used Tobacco e-Cigarette/Vaping Use: Never Used Second Hand Smoke Exposure: No service: No Current occupational status: retired Cognitive needs: No Hearing needs: No Vision needs: No Questionnaire PHQ-9 Over the last 2 weeks, how often have you been bothered by any of the following problems? 1. Little interest or pleasure in doing things: not at all 2. Feeling down, depressed, or hopeless: not at all 3. Trouble falling or staying asleep, or sleeping too much: not at all 4. Feeling tired or having little energy: not at all 5. Poor appetite or overeating: not at all 6. Feeling bad about yourself - or that you are a failure or have let yourself or your family down: not at all 7. Trouble concentrating on things, such as reading the newspaper or watching television: not at all 8. Moving or speaking so slowly that other people could have noticed. Or the opposite - being so fidgety or restless that you have been moving around a lot more than usual: not at all 9. Thoughts that you would be better off or of hurting yourself in some way: not at all Total score: 0 Depression Screening Interpretation: Negative Depression Screening Done: Yes 68169 - PHQ-9 Billing: Yes Source: Developed by Drs. Carlos Alberto Velez, Johanna Cifuentes, Yury Bermudez and colleagues, with an educational nilay from [employer]. Thrive Questionnaire Date Thrive assessed: 02/09/25 I am a: Patient What is your living situation today?: I have a steady place to live Within the past 12 months, did the food you bought not last and you didn't have the money to get more?: Never true Within the past 12 months, did you worry whether your food would run out before you got money to buy more?: Never true Do you have trouble paying for medicines?: No Do you have trouble getting transportation to medical appointments?: No Do you have trouble paying your heating and electricity bill?: No Do you have trouble taking care of your child, family member or friend?: No Do you have trouble with day-to-day activities such as bathing, preparing meals, shopping, managing finances, etc.?: No Are you currently unemployed and looking for a job?: No Are you interested in more education?: No Please select the resources that you would like help with: None Currently or been in a relationship where the following occur: No concerns reported THRIVE Score: 0 AUDIT C Alcohol Use Questionnaire (AUDIT-C) 1. How often do you have a drink containing alcohol?: Never 3. How often do you have six or more drinks on one occasion?: Never Total Score: 0 Score Reviewed/Action Taken: Yes ABRAHAM-7 AMB Questionnaire ABRAHAM-7 Date ABRAHAM - 7 assessed: 02/09/25 Feeling nervous, anxious, or on edge: 0 = Not at all Not being able to stop or control worryin = Not at all Worrying too much about different things: 0 = Not at all Trouble relaxin = Not at all Being so restless that it is hard to sit still: 0 = Not at all Becoming easily annoyed or irritable: 0 = Not at all Feeling afraid as if something awful might happen: 0 = Not at all Total ABRAHAM-7 score (0-4 normal; 5-9 mild; 10-14 moderate; 15-21 severe): 0 Source: Developed by Drs. Carlos Alberto Velez, Johanna Cifuentes, Yury Bermudez and colleagues, with an educational nilay from [employer]. ABRAHAM-7 Assessment Billing ABRAHAM-7 Assessment Tool: ABRAHAM-7 Assessment 90343 Physical exam (Primary Care) Vital Signs: Last Vital Signs Pulse 92 02/09/25 10:13 BP 110/70 02/09/25 10:13 Pulse Ox 98 02/09/25 10:13 BMI result Body Mass Index 26.0 Tobacco/Smoking Status: Tobacco use Status Tobacco use date assessed 02/09/25 02/09/25 10:14 Patient Tobacco Use Status Never used Tobacco 02/09/25 10:14 e-Cigarette/Vaping Use Never Used 02/09/25 10:14 PHQ-9: PHQ-9 Score PHQ-9: Total score 0 02/09/25 10:41 Depression Screening Interpretation: Negative Thrive Assessment: Date of Thrive Assessment Date Thrive assessed 02/09/25 02/09/25 10:14 Currently or been in a relationship where the following occur: No concerns reported Coding Level of Care Code Est Pt Level 4 (90252) Diagnoses Mass of left lower extremity R22.42 Primary hypertension I10 Hypertension type: primary hypertension Additional Codes ABRAHAM-7 Assessment Billing - ABRAHAM-7 Assessment Tool: ABRAHAM-7 Assessment 87202 ([id number]) PHQ-9 - 61388 - PHQ-9 Billing: Yes ([id number]) Assessment & Plan Assessment & Plan (1) Mass of left lower extremity: Code(s): R22.42 - Localized swelling, mass and lump, left lower limb Category: Medical (2) HTN (hypertension): Code(s): I10 - Essential (primary) hypertension Category: Medical Qualifiers: Hypertension type: primary hypertension Qualified Code(s): I10 - Essential (primary) hypertension Plan . Orders: Orders Lipid Panel Today I10 - Essential (primary) hypertension TSH reflex Free T4 Today I10 - Essential (primary) hypertension US Extremity Nonvas Limited LT Today R22.42 - Localized swelling, mass and lump, left lower limb Comprehensive [place]. Panel Fast Today I10 - Essential (primary) hypertension UA CC w/rflx Micro + Cult Today I10 - Essential (primary) hypertension Referrals General Surgery Referral R22.42 - Localized swelling, mass and lump, left lower limb
== END 2025-02-09 11:08 | disposition home or self-care (01) ==
LOC: HO.HMCC 10:02
PROVIDERS: PCP Nurse Practitioner Family; Visit Provider Nurse Practitioner Family
DX: R22.42 Localized swelling, mass and lump, left lower limb (principal); I10 Essential (primary) hypertension

== ENCOUNTER → 2025-02-09 10:02 | Outpatient (BNVA) | payer BC, SELFPAY | PROVIDERS: PCP Nurse Practitioner Family; Visit Provider Nurse Practitioner Family | DX: R22.42 Localized swelling, mass and lump, left lower limb (principal); I10 Essential (primary) hypertension | CPT/HCPCS: 96127 ==

== ENCOUNTER 2025-02-10 06:53 | Outpatient (REF) | payer BC, SELFPAY ==
[2025-02-10 10:12] LABS: Appearance Urine Clear; Color Urine Yellow; Glucose Urine UA Negative (Negative); Leukocyte Esterase Urine Trace (Negative); Nitrite Urine Negative (Negative); PH 7.5 (5.0-9.0); UMIC TRIGGER UACC YES; Urine Blood Negative (Negative); Urine Ketones Negative (Negative); Urine Protein Negative (Neg-Trace)
[2025-02-10 10:18] LABS: Bacteria Urine None Seen (None Seen); Hyaline Casts Urine 0-2 /LPF (0-2); RBC Urine 0-2 /HPF (0-2); Squamous Epithelial Cell Urine 0-2 /HPF (0-2); WBC Urine 0-5 /HPF (0-5)
[2025-02-10 10:33] LABS: MANUAL DIFF FLAG NO
[2025-02-10 10:41] LABS: Basophils Absolute Auto 0.1 X10*3/uL (0.0-0.2); Basophils Percent Auto 0.9 % (0-2); Eosinophils Absolute Auto 0.1 X10*3/uL (0.0-0.4); Eosinophils Percent Auto 2.5 % (0-4); Hematocrit 34.7 % (42.0-52.0); Hemoglobin 11.9 g/dl (14.0-18.0); Imm Gran Abs Auto 0.02 X10*3/uL (0.00-0.03); Imm Gran Pct Auto 0.4 % (0.0-0.4); Lymphocytes Absolute Auto 1.3 X10*3/uL (1.2-4.9); Mean Corpuscular HGB Conc 34.3 g/dl (31.0-36.0); Mean Corpuscular Hemoglobin 33.3 pg (27.0-33.0); Mean Corpuscular Volume 97.2 fL (80.0-98.0); Mean Platelet Volume 10.7 fL (9.4-12.4); Monocytes Absolute Auto 0.4 X10*3/uL (0.1-1.2); Monocytes Percent Auto 7.8 % (2-11); Neutrophils Absolute Auto 3.6 x10*3/uL (2.0-8.3); Neutrophils Percent Auto 65.4 % (45-73); Platelet Count 198 X10*3/uL (160-400); Red Blood Count 3.57 X10*6/uL (4.60-5.80); Red Cell Distribution Width 12.8 % (11.0-16.0); White Blood Count 5.5 X10*3/uL (4.8-10.8)
[2025-02-10 11:25] LABS: Alanine Aminotransferase 12 U/L (0-40); Albumin Level 4.1 g/dL (3.5-5.0); Alkaline Phosphatase 57 U/L (39-117); Anion Gap 10 (12-20); Aspartate Amino Transferase 19 U/L (5-37); Bilirubin Total 0.8 mg/dL (0.0-1.0); Blood Urea Nitrogen 21 mg/dL (9-16); Calcium 9.1 mg/dL (8.4-10.2); Carbon Dioxide 27 mmol/L (22-29); Chloride 104 mmol/L (96-108); Cholesterol 113 mg/dL (<200); Estimated Glomerular Filt Rate > 60; Ferritin 367 ng/mL (20-250); Glucose Fasting 98 mg/dL (60-99); Glucose Random 97 mg/dL (60-115); Potassium 4.2 mmol/L (3.3-5.1); Sodium 137 mmol/L (135-145); Total Protein 7.5 g/dL (6.5-8.0); Triglycerides 72 mg/dL (<150)
[2025-02-10 12:04] LABS: HDL Cholesterol 42 mg/dL (>40); LDL Cholesterol Calculated 57 mg/dL (<100)
[2025-02-12 12:03] LABS: Kappa Light Chain, Free Serum 13.1 mg/L (3.3-19.4); Kappa/Lambda Lt Ch Free Ratio 0.11 (0.26-1.65); Lambda Light Chain, Free Serum 119.1 mg/L (5.7-26.3)
[2025-02-13 09:54] LABS: IgA 49 mg/dL (70-320); IgG 730 mg/dL (600-1540); IgM 2097 mg/dL (50-300)
== END 2025-02-10 06:54 | disposition home or self-care (01) ==
LOC: HO.HMGCLDS 06:53
PROVIDERS: PCP Nurse Practitioner Family; Referring Provider Internal Medicine Medical Oncology; Visit Provider Nurse Practitioner Family
DX: D47.2 Monoclonal gammopathy (principal); I10 Essential (primary) hypertension
CPT/HCPCS: 36415; 80053; 80061; 81001; 81003; 82728; 82784; 83521; 84443; 85025; 86334

== ENCOUNTER 2025-02-11 15:04 | Outpatient (AMB) | payer BC, SELFPAY ==
--- NOTE | 2025-02-11 15:06 | MHC.OFFVIS ---
Vital Signs 02/11/25 15:10 Height 5 ft 8 in Weight 170 lb BMI 25.8 BP 127/63 Blood Pressure Location Rt brachial Position Sitting Pulse 89 Intake Visit Reasons: Lump (L) Lower Limb Intake Note: Patient referred by pcp Rex Thompson PA-C for mass on Lt calf. Present for 2wks. Patient c/o: denies trauma. Feels uncomfortable when walking. No hx of skin CA. Mushroom Picker Required: No Accompanied by: spouse Johanna Allergies penicillin G Allergy (Unknown, Verified 02/11/25 15:13) hives penicillin V Allergy (Unknown, Verified 02/11/25 15:13) rash Penicillins [PENICILLINS] Allergy (Unknown, Verified 02/11/25 15:13) RASH Medication List - Last Reconciled 02/11/25 by Uvaldo Bang MD calcium citrate 200 mg PO DAILY losartan 100 mg PO DAILY multivitamin 1 tab PO DAILY HPI HPI Lump (L) Lower Limb: Details: 79-year-old male referred for a lump on the left leg. He says that he has felt this for maybe about 2 weeks. He denies any trauma to the area. He describes discomfort but not pain. He denies any skin changes. He says he is still able to walk normally. He denies any other complaints. He does mentioned that he had an RSV infection about a month ago and was apparently sick with respiratory symptoms. He also says he is being followed by Dr. Cruz of Oncology for monoclonal gammopathy. 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 Maternal Grandmother Diabetes mellitus Maternal Grandfather Diabetes mellitus Brother No problems noted. Sister No problems noted. Paternal Grandfather No problems noted. Paternal Grandmother No problems noted. Maternal Aunt No problems noted. Maternal Uncle No problems noted. Paternal Aunt No problems noted. Paternal Uncle No problems noted. Other No family history of cancer Social History Household Members: Family Housing: House Are you a primary residential care officer to a significant other at home: No Do you presently have visiting nurse or other home services: No Alcohol intake: former Patient Tobacco Use Status: Never used Tobacco e-Cigarette/Vaping Use: Never Used Second Hand Smoke Exposure: No service: No Current occupational status: retired Cognitive needs: No Hearing needs: No Vision needs: No Review of Systems Const Denies chills and Denies fever(s) Card Denies chest pain, Denies dyspnea and Denies dyspnea on exertion Resp Denies cough, Denies dyspnea and Denies dyspnea on exertion GI Denies hematochezia and Denies change in bowel habits Denies hematuria and Denies difficulty urinating Musc Denies back pain and Denies limited range of motion Neuro Denies focal weakness and Denies convulsions Psych Denies depression and Denies mood swings Physical Exam Vital Signs: Last Vital Signs Pulse 89 02/11/25 15:10 BP 127/63 02/11/25 15:10 BMI result Body Mass Index 25.8 Const General: comfortable and no acute distress Orientation/consciousness: patient oriented x3 Neck Neck: Yes no lymphadenopathy Resp Auscultation: clear to auscultation bilaterally Cardio Rhythm: regular rhythm GI Palpation (GI): Soft to palpation, nontender and no guarding Neuro General: patient oriented x3 Extrem Other: Left lower leg posteriorly is note of what he had to be a firm but well-defined mass about 5 cm in widest dimension without skin changes Assessment & Plan Assessment & Plan (1) Mass of left lower leg: Code(s): R22.42 - Localized swelling, mass and lump, left lower limb Category: Medical Plan: He has this firm well-defined mass on the posterior leg overlying the gastrocnemius as described above. I am uncertain as to the exact pathology. He says he is already scheduled to undergo an ultrasound for this in 3 weeks. This will provide us more information. I will see him again in the office after his ultrasound. Coding Level of Care Code New Pt Level 3 (72236) Diagnoses Mass of left lower leg R22.42
[2025-02-11 15:10] VITALS: BP 127/63; PULSE 89; BMI 25.8
== END 2025-02-11 15:27 | disposition home or self-care (01) ==
LOC: HO.HGS 15:05
PROVIDERS: PCP Nurse Practitioner Family; Visit Provider Surgery
DX: R22.42 Localized swelling, mass and lump, left lower limb (principal)
CPT/HCPCS: 99203

== ENCOUNTER → 2025-02-11 15:04 | Outpatient (BNVA) | payer BC, SELFPAY | PROVIDERS: PCP Nurse Practitioner Family; Visit Provider Surgery ==

== ENCOUNTER 2025-03-03 14:20 | Outpatient (REF) | payer BC, SELFPAY ==
--- NOTE | ~2025-03-03 | US_ITS ---
EXAMINATION: Ultrasound venous duplex bilateral lower extremities. CLINICAL INDICATION: Bilateral leg Edema. COMPARISON: None. TECHNIQUE: Routine grayscale, color and Doppler imaging of bilateral lower extremity veins were performed. FINDINGS: There is normal color flow, compression and augmentation seen in bilateral common femoral, greater saphenous, central femoral, popliteal, posterior tibial, peroneal veins. The soft tissues are normal. US/US Extremity Nonvas Limited LT IMPRESSION: Normal bilateral lower extremity venous study. Electronically signed by: Marvin Owen MD 03/04/2025 09:09 AM EDT
== END 2025-03-03 14:21 | disposition home or self-care (01) ==
LOC: HO.HMGCX 14:20
PROVIDERS: PCP Nurse Practitioner Family; Visit Provider Nurse Practitioner Family
DX: R22.42 Localized swelling, mass and lump, left lower limb (principal)
CPT/HCPCS: 76882

== ENCOUNTER → 2025-03-03 14:22 | Outpatient (BNV) | payer BC, SELFPAY | PROVIDERS: PCP Nurse Practitioner Family; Visit Provider Radiology Diagnostic Radiology | DX: R22.43 Localized swelling, mass and lump, lower limb, bilateral (principal) | CPT/HCPCS: 76882 ==

== ENCOUNTER 2025-03-12 13:01 | Outpatient (AMB) | payer BC, SELFPAY ==
--- NOTE | 2025-03-12 13:07 | A.OFFVIS_ITS ---
Vital Signs 03/12/25 13:11 Height 5 ft 8 in Weight 175 lb BMI 26.6 BP 129/67 Blood Pressure Location Rt brachial Position Sitting Pulse 88 Intake Visit Reasons: s/p US Lump (L) Lower Limb Intake Note: Patient here s/p LLE us from 03-03-2025. Reports lump on Lt calf still present. Patient c/o: denies pain, tenderness. Veterinary Surgery Technologist Required: No Accompanied by: spouse Rula Allergies penicillin G Allergy (Unknown, Verified 03/12/25 13:08) hives penicillin V Allergy (Unknown, Verified 03/12/25 13:08) rash Penicillins [PENICILLINS] Allergy (Unknown, Verified 03/12/25 13:08) RASH Medication List - Last Reconciled 03/12/25 by Uvaldo Bang MD calcium citrate 200 mg PO DAILY losartan 100 mg PO DAILY multivitamin 1 tab PO DAILY HPI HPI s/p US Lump (L) Lower Limb: Details: I had seen him in the office because of a left calf mass a month ago. I had sent him for an ultrasound to define this He says that this does not cause any pain. He says that the mass has shrunk in size. He denies any skin changes. 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 Maternal Grandmother Diabetes mellitus Maternal Grandfather Diabetes mellitus Brother No problems noted. Sister No problems noted. Paternal Grandfather No problems noted. Paternal Grandmother No problems noted. Maternal Aunt No problems noted. Maternal Uncle No problems noted. Paternal Aunt No problems noted. Paternal Uncle No problems noted. Other No family history of cancer Social History Household Members: Family Housing: House Are you a primary cna caregiver to a significant other at home: No Do you presently have visiting nurse or other home services: No Alcohol intake: former Patient Tobacco Use Status: Never used Tobacco e-Cigarette/Vaping Use: Never Used Second Hand Smoke Exposure: No service: No Current occupational status: retired Cognitive needs: No Hearing needs: No Vision needs: No Review of Systems Const Denies chills and Denies fever(s) Card Denies chest pain at rest GI Denies abdominal pain Denies difficulty urinating Physical Exam Vital Signs: Last Vital Signs Pulse 88 03/12/25 13:11 BP 129/67 03/12/25 13:11 BMI result Body Mass Index 26.6 Const General: comfortable and no acute distress Resp Effort & Inspection: normal respiratory effort Cardio Rate: regular rate Extrem Other: Left calf mass, vague, not tender, no skin changes, seems smaller compared to when last seen Assessment & Plan Assessment & Plan (1) Mass of left lower leg: Code(s): R22.42 - Localized swelling, mass and lump, left lower limb Category: Medical Plan: He ultrasound suggest a complex hematoma. He denies any pain or tenderness. The area has decreased in size significantly I told him that we are not planning for any surgical intervention at this time as the imaging shows a likely hematoma. I will see him again in the office in about 2 months to see how this is coming along. He is comfortable with the plan. His was with him during the visit. Coding Level of Care Code Est Pt Level 3 (48434) Diagnoses Mass of left lower leg R22.42
[2025-03-12 13:11] VITALS: BP 129/67; PULSE 88; BMI 26.6
== END 2025-03-12 13:49 | disposition home or self-care (01) ==
LOC: HO.HGS 13:02
PROVIDERS: PCP Nurse Practitioner Family; Visit Provider Surgery
DX: R22.42 Localized swelling, mass and lump, left lower limb (principal)
CPT/HCPCS: 99213

== ENCOUNTER → 2025-03-12 13:01 | Outpatient (BNVA) | payer BC, SELFPAY | PROVIDERS: PCP Nurse Practitioner Family; Visit Provider Surgery ==

== ENCOUNTER 2025-05-14 12:59 | Outpatient (AMB) | payer BC, SELFPAY ==
--- OUTSIDE RECORDS SUMMARY | 2025-05-14 13:02 | XMS_ITS | Patient Health Record ---
Author Organization [facility] Address [address] [place] [address] Care Team Providers Care Gambling Box Person Name Role Phone Rojelio Santana M.D. Primary Care Provider Esmer tayjamesCarlos Alberto Dixon Unavailable [phone] Allergies Allergen (clinical drug ingredient) Drug/Non Drug Allergy documented on EMR Reaction Allergy Type Onset Date Status Penicillin Unknown Drug Allergy Active Reason For Referral No Information Medications Medication SIG (Take, Route, Frequency, Duration) Notes Start Date End Date Status Losartan Potassium 100 MG 1 tablet Orally Once a day Active Multi Vitamin/Minerals - as directed Ora lly once a day Active Calcium Citrate + D3 315-250 MG-UNIT 2 tablet Orally daily Act rashaun Aspirin 81 MG 1 tablet Orally Once a day Active Immunizations Vaccine Route Administration Date Status Comme nts Influenza Unknown 07/15/2019 Administered Problems Problem Type SNOMED Code ICD Code Onset Dates Problem Status W/U Status Risk Notes Problem [id number] Encounter for screening for malignant neoplasm of colon (Z12.11) Active confirmed Problem [id number] Preprocedural examination (Z01.818) Active confirmed Problem 307642223 Long-term use of aspirin therapy (Z79.82) Active confirmed Problem 954876176 Hx of adenomatou s colonic polyps (Z86.010) Active confirmed Plan Of Treatment Future Test Test Name Order Date COLONOSCOPY 01/31/2013 COLONOSCOPY 08/20/2019 Insurance Providers Payer Name Payer Address Payer Phone Subscriber Number Group Number Insured Name Patient Relationship to Insured Coverage Start Date Coverage End Date [facility] [address] [place] [address] [id number] ESTEFANIA DE GUZMAN Self - patient is the insured Medical (General) History Medical History History ICD Code Colonoscopy 10-18-2005- tubu lar adenoma removed, internal/external hemorrhoids, diverticulosis; neg. colonoscopy in 03/2013 Hypertension Denies MO,DM,CVA,Lung disease,renal dise ase Neg.prostate biopsies Surgical History Surgery Date(Month/Year)
--- NOTE | 2025-05-14 13:06 | A.OFFVIS_ITS ---
Vital Signs 05/14/25 13:11 Height 5 ft 8 in Weight 173 lb BMI 26.3 BP 127/60 Blood Pressure Location Rt brachial Position Sitting Pulse 95 Intake Visit Reasons: 2 mo f/u mass lower leg Intake Note: Patient here for 2m follow up hematoma on lt lower leg. Patient c/o: getting smaller. Denies pain. 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 I had seen him in February and March 2025 for this. I had recommended no surgical intervention He does state that he feels that the mass on his left calf has decreased in size. He denies any pain or tenderness. He denies any discomfort. 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 Maternal Grandmother Diabetes mellitus Maternal Grandfather Diabetes mellitus Brother No problems noted. Sister No problems noted. Paternal Grandfather No problems noted. Paternal Grandmother No problems noted. Maternal Aunt No problems noted. Maternal Uncle No problems noted. Paternal Aunt No problems noted. Paternal Uncle No problems noted. Other No family history of cancer Social History Household Members: Family Housing: House Are you a primary personal care attendant to a significant other at home: No Do you presently have visiting nurse or other home services: No Alcohol intake: former Patient Tobacco Use Status: Never used Tobacco e-Cigarette/Vaping Use: Never Used Second Hand Smoke Exposure: No service: No Current occupational status: retired Cognitive needs: No Hearing needs: No Vision needs: No Review of Systems Const Denies chills and Denies fever(s) Card Denies chest pain Resp Denies cough GI Denies abdominal pain Physical Exam Vital Signs: Last Vital Signs Pulse 95 05/14/25 13:11 BP 127/60 05/14/25 13:11 BMI result Body Mass Index 26.3 Const General: comfortable and no acute distress Resp Effort & Inspection: normal respiratory effort Cardio Rate: regular rate Extrem Other: Left calf mass is much smaller in size, barely perceptible, tenderness, no skin changes, no cellulitis, no skin breakdown Assessment & Plan Assessment & Plan (1) Mass of left lower extremity: Code(s): R22.42 - Localized swelling, mass and lump, left lower limb Category: Medical Plan: This has decreased in size considerably. He denies any pain or tenderness or discomfort I would continue with surgical management. He can try heating pads to the area to help hasten the resorption I told him to come back to the office if has problems or concerns down the line with hematoma. Coding Level of Care Code Est Pt Level 2 (53761) Diagnoses Mass of left lower extremity R22.42
[2025-05-14 13:11] VITALS: BP 127/60; PULSE 95; BMI 26.3
== END 2025-05-14 13:22 | disposition home or self-care (01) ==
LOC: HO.HGS 12:59
PROVIDERS: PCP Nurse Practitioner Family; Visit Provider Surgery
DX: R22.42 Localized swelling, mass and lump, left lower limb (principal)
CPT/HCPCS: 99212

== ENCOUNTER 2025-08-19 07:59 | Outpatient (AMB) | payer BC, SELFPAY ==
[2025-08-19 08:13] VITALS: BP 118/60; PULSE 81; RESP 14; O2SAT 98; BMI 26.3
--- NOTE | 2025-08-19 08:13 | A.OFFPC_ITS ---
Vital Signs 08/19/25 08:13 Height 5 ft 8 in Weight 173 lb BMI 26.3 BP 118/60 Blood Pressure Location Lt brachial Position Sitting Respiration 14 Pulse 81 Pulse Source Pulse Oximeter Pulse Oximetry (%) 98 Oxygen Delivery Method Room Air Intake Visit Reasons: annual exam Chief Marketing Officer Required: No Allergies penicillin G Allergy (Unknown, Verified 08/19/25 09:03) hives penicillin V Allergy (Unknown, Verified 08/19/25 09:03) rash Penicillins (PENICILLINS) Allergy (Unknown, Verified 08/19/25 09:03) RASH Medication List - Last Reconciled 08/19/25 by MODE Schwartz- calcium citrate 200 mg PO DAILY losartan 100 mg PO DAILY multivitamin 1 tab PO DAILY Tobacco use date assessed: 08/19/25 Fall risk assessment: No Falls in past year Last assessed Fall Risk: 08/19/25 Dental Screening Dental Screen Date: 02/09/25 HPI annual exam HPI Details History of Present Illness The patient is an 80-year-old male presenting for a physical exam. He sees a urologist on a regular basis. Health Maintenance - The patient sees a urologist regularly . - A Prostate-Specific Antigen (PSA) test and further lab work will be obtained. -encouraged RSV vaccination Social History Review of Systems - Cardiovascular: Denies chest pain. - Respiratory: Denies shortness of breat h. - Gastrointestinal: Denies abdominal elieser n, blood in stool, constipation, and diarrhea. - Psychiatric: Denies suicidal or homici jennifer ideation. Physical Exam General: Cooperative, healthy appearing, comfortable, no acute distress and well developed Orientation: Patient oriented x3 Limitations: No limitations Head: Normal to inspection Ears: Hearing grossly normal bilaterally Nose: Normal external nose present Face and sinus: Normal facial exam Eyes: Appearance normal, both eyes and all related structures Neck: Normal visual inspection and Yes full ROM Respiratory: Normal respiratory effort and able to speak in complete sentences. Clear to auscultation bilaterally Cardiovascular: Regular rate and rhythm. Normal S1 and S2 GI: Normal to inspection. Soft to palpation and nontender : Testicles without masses/lesions and no hernias appreciated Skin: No rashes or lesions noted Neuro: Patient oriented x3 Extremities: Normal to inspection, no edema noted Results Plan 1. Encounter For General Adult Medical E xamination A physical exam was performed. A PSA test and further lab work will be obtained. 2. Follow-Up Care With Urology The patient sees a urologist on a regular basis. Discussion Notes I discussed with the patient that I will be ordering a PSA test and additional lab work as part of his physical exam. Patient Instructions - Please proceed to have the lab work do ne, which will include a PSA test. - Continue to see your urologist for reg ular check-ups. 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 Maternal Grandmother Diabetes mellitus Maternal Grandfather Diabetes mellitus Brother No problems noted. Sister No problems noted. Paternal Grandfather No problems noted. Paternal Grandmother No problems noted. Maternal Aunt No problems noted. Maternal Uncle No problems noted. Paternal Aunt No problems noted. Paternal Uncle No problems noted. Other No family history of cancer Social History Household Members: Family Housing: House Are you a primary career services assistant to a significant other at home: No Do you presently have visiting nurse or other home services: No Alcohol intake: former Patient Tobacco Use Status: Never used Tobacco e-Cigarette/Vaping Use: Never Used Second Hand Smoke Exposure: No service: No Current occupational status: retired Cognitive needs: No Hearing needs: No Vision needs: No Questionnaire PHQ-9 Over the last 2 weeks, how often have you been bothered by any of the following problems? 1. Little interest or pleasure in doing things: not at all 2. Feeling down, depressed, or hopeless: not at all 3. Trouble falling or staying asleep, or sleeping too much: not at all 4. Feeling tired or having little energy: not at all 5. Poor appetite or overeating: not at all 6. Feeling bad about yourself - or that you are a failure or have let yourself or your family down: not at all 7. Trouble concentrating on things, such as reading the newspaper or watching television: not at all 8. Moving or speaking so slowly that other people could have noticed. Or the opposite - being so fidgety or restless that you have been moving around a lot more than usual: not at all 9. Thoughts that you would be better off or of hurting yourself in some way: not at all Total score: 0 Depression Screening Interpretation: Negative Depression Screening Done: Yes [id number] - PHQ-9 Billing: Patient declined-do not bill Source: Developed by Drs. Carlos Alberto Velez, Johanna Cifuentes, Yury Bermudez and colleagues, with an educational nilay from [employer]. Thrive Questionnaire Date Thrive assessed: 02/02/25 I am a: Patient What is your living situation today?: I have a steady place to live Within the past 12 months, did the food you bought not last and you didn't have the money to get more?: Never true Within the past 12 months, did you worry whether your food would run out before you got money to buy more?: Never true Do you have trouble paying for medicines?: No Do you have trouble getting transportation to medical appointments?: No Do you have trouble paying your heating and electricity bill?: No Do you have trouble taking care of your child, family member or friend?: No Do you have trouble with day-to-day activities such as bathing, preparing meals, shopping, managing finances, etc.?: No Are you currently unemployed and looking for a job?: No Are you interested in more education?: No Please select the resources that you would like help with: None Currently or been in a relationship where the following occur: No concerns reported THRIVE Score: 0 ABRAHAM-7 AMB Questionnaire ABRAHAM-7 Date ABRAHAM - 7 assessed: 08/19/25 Feeling nervous, anxious, or on edge: 0 = Not at all Not being able to stop or control worryin = Not at all Worrying too much about different things: 0 = Not at all Trouble relaxin = Not at all Being so restless that it is hard to sit still: 0 = Not at all Becoming easily annoyed or irritable: 0 = Not at all Feeling afraid as if something awful might happen: 0 = Not at all Total ABRAHAM-7 score (0-4 normal; 5-9 mild; 10-14 moderate; 15-21 severe): 0 Source: Developed by Drs. Carlos Alberto Velez, Johanna Cifuentes, Yury Bermudez and colleagues, with an educational nilay from [employer]. Physical exam (Primary Care) Vital Signs: Last Vital Signs Pulse 81 08/19/25 08:13 Resp 14 08/19/25 08:13 BP 118/60 08/19/25 08:13 Pulse Ox 98 08/19/25 08:13 Oxygen Delivery Method Room Air 08/19/25 08:13 BMI result Body Mass Index 26.3 Tobacco/Smoking Status: Tobacco use Status Tobacco use date assessed 08/19/25 08/19/25 08:20 Patient Tobacco Use Status Never used Tobacco 08/19/25 08:20 e-Cigarette/Vaping Use Never Used 08/19/25 08:20 PHQ-9: PHQ-9 Score PHQ-9: Total score 0 08/19/25 08:20 Depression Screening Interpretation: Negative Thrive Assessment: Date of Thrive Assessment Date Thrive assessed 02/02/25 08/19/25 08:20 Currently or been in a relationship where the following occur: No concerns rep orted Coding Level of Care Code Est Pt Prev Care >65y(31549) Diagnoses Physical exam Z00.00 Assessment & Plan Assessment & Plan (1) Physical exam: Code(s): Z00.00 - Encounter for general adult medical examination without abnormal findings Category: Medical Plan .
== END 2025-08-19 08:50 | disposition home or self-care (01) ==
LOC: HO.HMCC 08:00
PROVIDERS: PCP Nurse Practitioner Family; Visit Provider Nurse Practitioner Family
DX: Z00.00 Encounter for general adult medical examination without abnormal findings (principal)